=== PATIENT | female | born 1995 | race Caucasian/White ===

== ENCOUNTER 2018-02-20 05:31 | Inpatient (IN) | payer BC ==
[2018-02-20] MEDS ORDERED: CEFAZOLIN 2 GM/50 ML (PMX) 50 ML IV ×2 (06:00→09:00)
[2018-02-20] MEDS ORDERED: CARBOPROST 250 MCG INJ IM ×2 (06:00→09:00)
[2018-02-20] MEDS ORDERED: METHYLERGONOVINE 0.2 MG INJ IM ×2 (06:00→09:00)
[2018-02-20] MEDS ORDERED: OXYTOCIN 30 UNITS/LR 500 ML IV ×4 (06:00→09:00)
[2018-02-20] MEDS ORDERED: MISOPROSTOL 200 MCG TAB PR ×2 (06:00→09:00)
[2018-02-20] MEDS: LACTATED RINGER'S 1,000 ML IV ×2 (06:18→07:16)
[2018-02-20 06:28] LABS: ADD MAN DIFF? NO
[2018-02-20 06:31] LABS: BASOPHILS % 0.3 % (0.0-2.0); EOSINOPHILS # 0.1 10^3/ul (0.0-0.5); EOSINOPHILS % 1.3 % (0.0-7.0); HEMOGLOBIN 9.3 g/dl (12.0-16.0); LYMPHOCYTES # 2.8 10^3/ul (0.8-2.9); LYMPHOCYTES % 29.7 % (15.0-51.0); MEAN CORPUSCULAR HEMOGLOBIN 25.3 pg (29.0-33.0); MEAN CORPUSCULAR HGB CONC 32.1 g/dl (32.0-37.0); MEAN PLATELET VOLUME 12.3 fl (7.4-10.4); MONOCYTE # 0.6 10^3/ul (0.3-0.9); MONOCYTES % 5.8 % (0.0-11.0); NEUTROPHIL # 5.9 10^3/ul (1.6-7.5); NEUTROPHILS % 62.5 % (39.0-77.0); PLATELET COUNT 160 10^3/UL (140-415); RED BLOOD COUNT 3.67 10^6/ul (4.20-5.40); RED CELL DISTRIBUTION WIDTH 13.7 % (11.5-14.5)
[2018-02-20 06:31] LABS: WHITE BLOOD COUNT 9.5 10^3/ul (4.8-10.8)
[2018-02-20 06:52] LABS: INR 0.85; PARTIAL THROMBOPLASTIN TIME 20.7 Sec (25.0-35.0); PROTIME 11.7 Sec (11.9-14.9); PT RATIO 0.9
[2018-02-20] MEDS ORDERED: EPHEDrine SULFATE 50 MG/5 ML SYG IV (07:30)
[2018-02-20] MEDS ORDERED: KETOROLAC 30 MG INJ IV (07:30)
[2018-02-20] MEDS ORDERED: NALOXONE (0.4 MG/ML) INJ IV (07:30)
[2018-02-20] MEDS ORDERED: morphine 2 MG INJ IV ×2 (07:30)
[2018-02-20] MEDS ORDERED: morphine SULFATE/PF (10 MG/10 ML) INJ SPINAL (07:30)
[2018-02-20] MEDS ORDERED: DIPHENHYDRAMINE 50 MG INJ IV (07:30)
[2018-02-20] MEDS ORDERED: EPHEDrine SULFATE 50 MG/5 ML SYG (07:38)
[2018-02-20] MEDS ORDERED: METOCLOPRAMIDE 10 MG INJ (07:39)
[2018-02-20] MEDS ORDERED: ONDANSETRON 4 MG INJ (07:39)
[2018-02-20] MEDS ORDERED: OXYTOCIN 10 UNIT INJ ×2 (07:39→08:29)
[2018-02-20] MEDS ORDERED: morphine SULFATE/PF (10 MG/10 ML) INJ (07:39)
[2018-02-20] MEDS ORDERED: BUPIVACAINE 0.75%/DEXT (SPINAL) 2 ML INJ (07:40)
[2018-02-20] MEDS ORDERED: OXYCODONE/ACETAMINOPHEN (5/325) TAB PO (09:00)
[2018-02-20] MEDS ORDERED: LANOLIN 7 GM TUBE TOP (09:00)
[2018-02-20] MEDS: OXYTOCIN 30 UNITS/LR 500 ML IV (09:11)
[2018-02-20] MEDS: SENNA/DOCUSATE NA (8.6MG/50MG) TAB PO ×2 (12:37→21:00)
[2018-02-20] MEDS: ONDANSETRON 4 MG INJ IV (13:07)
[2018-02-20 15:28] LABS: RAPID PLASMA REAGIN NONREACTIVE (NR)
[2018-02-20 15:28] LABS: RHOGAM PROFILE 1 1
[2018-02-20] MEDS: CEFAZOLIN 2 GM/50 ML (PMX) 50 ML IV (16:00)
[2018-02-21] MEDS: CEFAZOLIN 2 GM/50 ML (PMX) 50 ML IV ×2 (00:12→07:52)
[2018-02-21] MEDS: LACTATED RINGER'S 1,000 ML IV ×2 (00:12→05:50)
[2018-02-21] MEDS: OXYCODONE/ACETAMINOPHEN (5/325) TAB PO ×2 (07:52→19:51)
[2018-02-21] MEDS: SENNA/DOCUSATE NA (8.6MG/50MG) TAB PO ×2 (09:00→21:28)
[2018-02-21 09:14] LABS: ADD MAN DIFF? NO
[2018-02-21 09:26] LABS: BASOPHILS % 0.2 % (0.0-2.0); EOSINOPHILS % 0.3 % (0.0-7.0); HEMATOCRIT 27.2 % (37.0-47.0); HEMOGLOBIN 8.5 g/dl (12.0-16.0); LYMPHOCYTES # 2.1 10^3/ul (0.8-2.9); LYMPHOCYTES % 23.1 % (15.0-51.0); MEAN CORPUSCULAR HEMOGLOBIN 24.9 pg (29.0-33.0); MEAN CORPUSCULAR HGB CONC 31.3 g/dl (32.0-37.0); MEAN CORPUSCULAR VOLUME 79.5 fl (82.0-101.0); MEAN PLATELET VOLUME 11.8 fl (7.4-10.4); MONOCYTE # 0.5 10^3/ul (0.3-0.9); MONOCYTES % 5.6 % (0.0-11.0); NEUTROPHIL # 6.3 10^3/ul (1.6-7.5); NEUTROPHILS % 70.5 % (39.0-77.0); PLATELET COUNT 160 10^3/UL (140-415); RED BLOOD COUNT 3.42 10^6/ul (4.20-5.40); RED CELL DISTRIBUTION WIDTH 13.9 % (11.5-14.5)
[2018-02-21] MEDS: IBUPROFEN 600 MG TAB PO ×3 (11:43→23:42)
[2018-02-21] MEDS: FERROUS SULFATE (EC) 325 MG TAB PO (21:28)
[2018-02-22] MEDS: IBUPROFEN 600 MG TAB PO ×4 (05:33→23:32)
[2018-02-22] MEDS: SENNA/DOCUSATE NA (8.6MG/50MG) TAB PO ×2 (09:10→21:28)
[2018-02-22] MEDS: FERROUS SULFATE (EC) 325 MG TAB PO ×2 (09:10→21:28)
[2018-02-23] MEDS: OXYCODONE/ACETAMINOPHEN (5/325) TAB PO (01:57)
[2018-02-23] MEDS: IBUPROFEN 600 MG TAB PO ×2 (05:31→12:17)
[2018-02-23] MEDS: SENNA/DOCUSATE NA (8.6MG/50MG) TAB PO (08:51)
[2018-02-23] MEDS: FERROUS SULFATE (EC) 325 MG TAB PO (08:51)
== END 2018-02-23 18:38 | disposition home or self-care (01) | DRG 766 ==
LOC: L-D 05:31 → PP1 12:00
PROVIDERS: Obstetrics & Gynecology; Pediatrics
PROC: 10D00Z1 Extraction of Products of Conception, Low, Open Approach (ICD-10-PCS; principal; 2018-02-20 07:30)
PROC: 0UB70ZZ Excision of Bilateral Fallopian Tubes, Open Approach (ICD-10-PCS; 2018-02-20 07:30)
DX: O34.219 Maternal care for unspecified type scar from previous cesarean delivery (principal); O69.81X0 Labor and delivery complicated by cord around neck, without compression, not applicable or unspecified; Z3A.39 39 weeks gestation of pregnancy; Z37.0 Single live birth
CPT/HCPCS: 85025; 85610; 85730; 86592; 86850; 86870; 86885; 86900; 86901; 88302; 99464